=== PATIENT | female | born 1990 | race African-American/Black ===

== ENCOUNTER 2021-02-03 20:07 | Emergency (ER) | payer MEDICAID ==
[~2021-02-03] VITALS: Ht 154.9 cm; Wt 86.5 kg
[2021-02-03] MEDS ORDERED: ACETAMINOPHEN 325MG TABLET PO ONE (22:15)
[2021-02-03 22:37] LABS: BASOPHILS % 0.8 % (0.0-2.0); EOSINOPHILS % 0.6 % (0.0-5.0); HEMOGLOBIN. 12.7 g/dL (12.0-16.0); LYMPHOCYTES % 24.9 % (20.0-50.0); MEAN CORPUSCULAR HEMOGLOBIN 29.2 pg (28.0-32.0); MEAN CORPUSCULAR VOLUME 84.9 fL (81.0-99.0); MEAN PLATELET VOLUME 8.6 fl (7.4-10.4); NEUTROPHILS % 65.7 % (40.0-76.0); PLATELET 298 x1000/uL (130-400); RED BLOOD CELL COUNT 4.36 mill/uL (4.2-5.4); RED CELL DISTRIBUTION WIDTH 13.5 % (11.6-14.6)
[2021-02-03 22:43] LABS: CHLORIDE 104 mEq/L (98-107)
[2021-02-03 22:49] LABS: HCG SCREEN POSITIVE
[2021-02-03 23:06] LABS: B-HCG QUANTITATIVE 66178 mIU/mL (<3)
[2021-02-04 00:20] VITALS: BP 123/84
== END 2021-02-04 00:31 | disposition home or self-care (01) ==
LOC: ER 20:07
DX: O20.9 Hemorrhage in early pregnancy, unspecified (principal); Z3A.01 Less than 8 weeks gestation of pregnancy
CPT/HCPCS: 36415; 76801; 80053; 81025; 84702; 84703; 85025; 86850; 86900; 99284

== ENCOUNTER 2021-06-07 17:20 | Emergency (ER) | payer MEDICAID ==
[~2021-06-07] VITALS: Ht 154.9 cm; Wt 87.0 kg
[2021-06-07] MEDS ORDERED: LABETALOL HCL 100MG TABLET PO ONE (18:00)
[2021-06-07] MEDS ORDERED: SODIUM CHLORIDE 0.9% 1,000 ML IV ONE (18:00)
[2021-06-07] MEDS ORDERED: ACETAMINOPHEN 325MG TABLET PO ONE (18:00)
[2021-06-07 19:32] LABS: HEMATOCRIT. 38.4 % (36.0-48.0); HEMOGLOBIN. 12.9 g/dL (12.0-16.0); MEAN CORPUSCULAR HEMOGLOBIN 26.9 pg (28.0-32.0); MEAN CORPUSCULAR VOLUME 79.7 fL (81.0-99.0); PLATELET 246 x1000/uL (130-400); RED BLOOD CELL COUNT 4.82 mill/uL (4.2-5.4); RED CELL DISTRIBUTION WIDTH 14.3 % (11.6-14.6)
[2021-06-07 19:36] LABS: CHLORIDE 105 mEq/L (98-107)
[2021-06-07 19:49] LABS: HCG SCREEN POSITIVE
[2021-06-07 22:26] VITALS: BP 135/74
[2021-06-07 22:53] LABS: PLATELET ESTIMATE NORMAL
== END 2021-06-07 22:28 | disposition home or self-care (01) ==
LOC: ER 17:20
DX: O98.512 Other viral diseases complicating pregnancy, second trimester (principal); U07.1 COVID-19; O13.2 Gestational [pregnancy-induced] hypertension without significant proteinuria, second trimester; Z3A.24 24 weeks gestation of pregnancy
CPT/HCPCS: 36415; 76805; 80053; 84703; 85025; 87426; 87804; 93005; 96360; 96361; 99285; J7030

== ENCOUNTER 2023-06-18 23:33 | Emergency (ER) | payer MEDICAID, OTHER ==
[2023-06-18 23:48] VITALS: PULSE 103
== END 2023-06-19 01:08 | disposition left against medical advice (07) ==
LOC: ER 06-19 00:40
DX: R05.9 Cough, unspecified (principal); Z53.21 Procedure and treatment not carried out due to patient leaving prior to being seen by health care provider
CPT/HCPCS: 99281

== ENCOUNTER 2023-06-19 07:17 | Emergency (ER) | payer OTHER ==
[~2023-06-19] VITALS: Ht 160 cm; Wt 88.0 kg
[2023-06-19 07:19] VITALS: PULSE 106
[2023-06-19 07:21] VITALS: BP 157/122; RESP 18; TEMP 98.9; O2SAT 100
[2023-06-19] MEDS ORDERED: ACETAMINOPHEN 500MG TABLET PO ONE (10:30)
== END 2023-06-19 11:16 | disposition left against medical advice (07) ==
LOC: ER 07:17
DX: M79.10 Myalgia, unspecified site (principal); Z53.21 Procedure and treatment not carried out due to patient leaving prior to being seen by health care provider
CPT/HCPCS: 99281

== ENCOUNTER 2023-09-05 01:26 | Emergency (ER) | payer OTHER ==
[~2023-09-05] VITALS: Ht 154.9 cm; Wt 87.7 kg
[2023-09-05 01:33] VITALS: BP 128/89; RESP 18; TEMP 98.7; O2SAT 100
[2023-09-05 01:35] VITALS: PULSE 114
== END 2023-09-05 03:28 | disposition left against medical advice (07) ==
LOC: ER 01:26
DX: F41.9 Anxiety disorder, unspecified (principal); I10 Essential (primary) hypertension
CPT/HCPCS: 99281

== ENCOUNTER 2024-02-18 20:00 | Emergency (ER) | payer OTHER ==
[2024-02-18 20:04] VITALS: PULSE 135; O2SAT 99
== END 2024-02-18 21:44 | disposition left against medical advice (07) ==
LOC: ER 20:00
DX: R51.9 Headache, unspecified (principal); R68.83 Chills (without fever); Z53.21 Procedure and treatment not carried out due to patient leaving prior to being seen by health care provider

== ENCOUNTER 2024-11-10 06:47 | Emergency (ER) | payer OTHER, MEDICAID ==
[~2024-11-10] VITALS: Ht 167.6 cm; Wt 82.0 kg
[2024-11-10 06:49] VITALS: O2SAT 98
[2024-11-10 08:49] LABS: BASOPHILS % 0.5 % (0.0-2.0); EOSINOPHILS % 0.9 % (0.0-5.0); HEMATOCRIT. 42.1 % (36.0-48.0); LYMPHOCYTES % 62.9 % (20.0-50.0); MEAN CORPUSCULAR HEMOGLOBIN 29.4 pg (28.0-32.0); MEAN CORPUSCULAR HGB CONC 33.4 g/dL (31.0-37.0); MEAN CORPUSCULAR VOLUME 88.2 fL (81.0-99.0); MEAN PLATELET VOLUME 8.1 fl (7.4-10.4); MONOCYTES % 5.7 % (2.0-8.0); PLATELET 284 x1000/uL (130-400); RED BLOOD CELL COUNT 4.77 mill/uL (4.2-5.4); RED CELL DISTRIBUTION WIDTH 14.7 % (11.6-14.6); WHITE BLOOD COUNT 4.5 x1000/uL (4.5-11.0)
[2024-11-10 08:52] LABS: CHLORIDE 101 mEq/L (98-107); HCG SCREEN NEGATIVE; SODIUM 136 mEq/L (136-145)
[2024-11-10 08:53] LABS: CARBON DIOXIDE 26 mEq/L (21-32)
[2024-11-10 08:54] LABS: CALCIUM 8.3 mg/dL (8.7-10.4)
[2024-11-10 08:58] LABS: CREATININE 0.9 mg/dL (0.6-1.0); GLUCOSE 97 mg/dL (70-105); UREA NITROGEN BLOOD 11 mg/dL (9-23)
[2024-11-10 09:00] LABS: ALANINE AMINOTRANSFERASE 17 IU/L (10-49); ALBUMIN 4.4 g/dL (3.2-4.8); ASPARTATE AMINOTRANSFERASE 26 IU/L (<34)
[2024-11-10 09:01] LABS: BILIRUBIN DIRECT 0.1 mg/dL (<=3.0); BILIRUBIN TOTAL 0.4 mg/dL (0.1-1.0); PROTEIN TOTAL 7.2 g/dL (6.0-8.3); PROTHROMBIN TIME 10.9 sec (9.6-11.0); TROPONIN I HIGH SENSITIVITY 5 ng/L (3.0-34)
[2024-11-10] MEDS: ACETAMINOPHEN 325MG TABLET PO NR (09:21)
[2024-11-10] MEDS: IOHEXOL-350 100 ML BOTTLE ONE (09:47)
[2024-11-10] MEDS ORDERED: LEVETIRACETAM 500MG PREMIX 100 ML IV ONE ×2 (10:15)
[2024-11-10 10:44] VITALS: BP 157/105; PULSE 75; RESP 17; TEMP 36.8; O2SAT 98
[2024-11-10] MEDS: LEVETIRACETAM 500MG TABLET PO ONE (10:49)
[2024-11-10 11:05] LABS: TROPONIN I HIGH SENSITIVITY 4 ng/L (3.0-34)
== END 2024-11-10 11:12 | disposition short-term general hospital (02) ==
LOC: ER 06:47 → EDBEDREQ 07:51 → EDBEDREQSVC 08:27 → ER 11:12 → CANBEDREQ 11:14
DX: I60.9 Nontraumatic subarachnoid hemorrhage, unspecified (principal); R20.0 Anesthesia of skin; R07.89 Other chest pain; E11.9 Type 2 diabetes mellitus without complications; I10 Essential (primary) hypertension; F41.9 Anxiety disorder, unspecified
CPT/HCPCS: 99291; 71275; 71045; 80076; 80048; 81025; 84703; 85025; 85610; 84484; 36415; 70496; 70498; 70450; 93005; Q9967; J1953